=== PATIENT | female | born 1940 | race Caucasian/White ===

== ENCOUNTER 2019-02-08 11:15 | Emergency (ER) | payer MEDICARE, OTHER ==
[~2019-02-08] VITALS: Ht 152.4 cm; Wt 77.1 kg
--- NOTE | 2019-02-08 11:15 | NUR ---
Patient to ER bed 7 to gown for evaluation. Side rails up. Report given to SWEETIE Aragon.
[2019-02-08 11:20] VITALS: BP_SYST 146
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
[2019-02-08] MEDS ORDERED: DIPH-TET-PERTUS Vaccine 0.5 ML VIAL (ADACEL) I.M. ONE (11:30)
--- NOTE | 2019-02-08 11:30 | NUR ---
ANNE MARIE De Oliveira at bedside examining patient.
[2019-02-08] MEDS ORDERED: PRO10 PO (11:33)
[2019-02-08] MEDS ORDERED: WARF2TAB2 PO (11:33)
[2019-02-08] MEDS ORDERED: LIP40 PO (11:33)
[2019-02-08] MEDS ORDERED: METO25TA6 PO (11:33)
[2019-02-08] MEDS ORDERED: LEVE750T4 PO (11:33)
--- NOTE | 2019-02-08 12:00 | NUR ---
Patient transported to radiology via gurney, accompanied by medical equipment technician.
[2019-02-08 12:08] LABS: BASOPHILS % (AUTO) 0.3 % (0.0-2.0); EOSINOPHILS # (AUTO) 0.1 K/uL (0.0-0.4); EOSINOPHILS % (AUTO) 0.9 % (0.0-4.0); HEMATOCRIT 46.8 % (36-48); HEMOGLOBIN 15.4 g/dL (12.0-16.0); MEAN CORPUSCULAR HEMOGLOBIN 31 pg (27-31); MEAN CORPUSCULAR HGB CONC 33 % (32-36); MEAN CORPUSCULAR VOLUME 94 fL (79.0-98.0); MONOCYTES # (AUTO) 0.5 K/uL (0.0-1.0); MONOCYTES % (AUTO) 4.2 % (1.7-9.3); NEUTROPHILS # (AUTO) 9.7 K/uL (1.8-7.7); NEUTROPHILS % (AUTO) 85.6 % (40.0-70.0); PLATELET COUNT (AUTO) 213 K/uL (130-430); RED BLOOD CELL COUNT(AUTO) 4.96 MIL/uL (4.2-6.2); RED CELL DISTRIBUTION WIDTH 15.2 % (9.0-15.0); WHITE BLOOD COUNT (AUTO) 11.4 K/uL (4.8-10.8)
--- NOTE | 2019-02-08 12:25 | NUR ---
Returned from radiology, back to [facility].
[2019-02-08 12:35] LABS: ALANINE AMINOTRANSFERASE 134 U/L (12-78); ALBUMIN 3.7 g/dL (3.4-4.8); ANION GAP 8 (5-15); ASPARTATE AMINOTRANSFERASE 65 U/L (10-37); CHLORIDE 106 mmol/L (98-107); CREATININE 1.11 mg/dL (0.55-1.30); GLUCOSE 122 mg/dL (70-99); POTASSIUM 4.1 mmol/L (3.5-5.1); SODIUM SERUM 138 mmol/L (136-145); TOTAL BILIRUBIN 0.3 mg/dL (0.0-1.0); UREA NITROGEN, BLOOD 16 mg/dL (8-21)
--- NOTE | 2019-02-08 12:35 | NUR ---
16# FR In and Out catheter with use of sterile technique. Immediate return of 100 ml urine noted. Urine sample collected and sent to lab. Pt tolerated procedure . Patient unable to toilet self.
[2019-02-08] MEDS ORDERED: NACL 0.9% 1,000 ML IV ONE (12:45)
[2019-02-08] MEDS ORDERED: PIPERACILLIN/TAZO 3.375 GM in NS 50 ML IV ONE (12:45)
--- NOTE | 2019-02-08 12:45 | NUR ---
Returned from radiology, back to [facility].
--- NOTE | 2019-02-08 12:45 | NUR ---
Priscila gerber in [facility] - 02/08/19 at 1310 by STEFFANIE Returned from radiology, back to [facility].
[2019-02-08 13:00] LABS: BILIRUBIN,URINE NEGATIVE (NEGATIVE); BLOOD, URINE 1+ (NEGATIVE); CLARITY/URINE CLEAR (CLEAR); COLOR,URINE YELLOW (YELLOW); GLUCOSE,URINE NEGATIVE (NEGATIVE); KETONES,URINE NEGATIVE (NEGATIVE); LEUKOCYTE ESTERASE ,URINE NEGATIVE (NEGATIVE); NITRITE, URINE NEGATIVE (NEGATIVE); PROTEIN URINE NEGATIVE (NEGATIVE); UROBILINOGEN,URINE 0.2 (0.2-1.0)
[2019-02-08] MEDS ORDERED: PIPERACILLIN/TAZOBACTAM 3.375 GM/VIAL (ZOSYN) IV ONE (13:07)
--- NOTE | 2019-02-08 13:08 | NUR ---
Called [phone] requesting a social media marketing analyst to come talk to patient's son at his request. No answer, left a message. Dr. De Oliveira made aware.
[2019-02-08 13:21] LABS: BACTERIA,URINE RARE /HPF (None Seen); MUCUS,URINE 1+ /LPF (None Seen); WBC,URINE 0-3 /HPF (0-3)
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
--- NOTE | 2019-02-08 15:49 | NUR ---
Report called in to SWEETIE Castle at [facility].
--- NOTE | 2019-02-08 15:59 | NUR ---
[facility] on site to transfer patient. Report and packet given to [facility]. Patient has intact and patent IV.
--- NOTE | 2019-02-08 15:59 | NUR ---
Patient to be transferred to [facility]. Is being transferred due to higher level of care. Receiving facility has accepting physician and available space. ER physician has signed transfer form. Patient or responsible constitution party has agreed to transfer and signed form. Patient belongings inventoried and will be sent with patient. Copy of nursing notes, lab reports, EKG, Physicians Orders and X-rays to be sent with patient. Report called to SWEETIE Castle at receiving facility. Receiving physician is Dr. Gan. [facility] service has been called for transfer. ETA is now.
[2019-02-08 16:00] VITALS: BP_SYST 136
== END 2019-02-08 15:59 | disposition short-term general hospital (02) ==
LOC: SED 11:15
DX: S91.114A Laceration without foreign body of right lesser toe(s) without damage to nail, initial encounter (principal); I48.91 Unspecified atrial fibrillation; Z86.73 Personal history of transient ischemic attack (TIA), and cerebral infarction without residual deficits; Z79.899 Other long term (current) drug therapy; X58.XXXA Exposure to other specified factors, initial encounter; Y93.89 Activity, other specified; Y92.89 Other specified places as the place of occurrence of the external cause; Y99.8 Other external cause status
CPT/HCPCS: 12001; 36415; 70450; 71045; 73630; 80053; 81000; 83605; 84484; 85025; 87040; 87086; 90471; 90715; 93005; 96365; 99285; J2543; J7030